=== PATIENT | male | born 1940 | race Caucasian/White ===

== ENCOUNTER 2017-04-25 14:01 | Emergency (ER) | payer OTHER, MEDICARE ==
[2017-04-25 14:08] VITALS: BP 131/99; PULSE 70; RESP 16; TEMP 97.7; O2SAT 96
[2017-04-25 14:40] LABS: COLOR YELLOW; LEUKOCYTE ESTERASE,URINE NEGATIVE (NEGATIVE); NITRITE,URINE NEGATIVE (NEGATIVE)
[2017-04-25 14:53] LABS: MUCUS TRACE /lpf (NONE-1+)
== END 2017-04-25 15:30 | disposition left against medical advice (07) ==
DX: Z53.21 Procedure and treatment not carried out due to patient leaving prior to being seen by health care provider (principal)

== ENCOUNTER 2018-02-07 16:46 | Emergency (ER) | payer OTHER, MEDICARE ==
[2018-02-07] MEDS ORDERED: TDAP ADULT 0.5 ML INJ (BOOSTRIX) IM ONE (17:10)
--- NOTE | 2018-02-07 17:48 | EDPHY ---
H & P Stated Complaint: L 2ND FINGER LAC/BLEEDING SINCE CUTTING ON APPLE - Personal History Current Tetanus Diphtheria and Acellular Pertussis (TDAP): Unsure - Medical/Surgical History Hx Asthma: No Hx Chronic Respiratory Disease: No Hx Diabetes: No Hx Cardiac Disease: No Hx Renal Disease: No Hx Cirrhosis: No Hx Alcoholism: No Hx HIV/AIDS: No Hx Splenectomy or Spleen Trauma: No Other PMH: Undecended testical repair, R inguinal hernia repair, R meniscus, HTN. - Social History Smoking Status: Former smoker Time Seen by Provider: 02/07/18 17:10 HPI/ROS: Chief complaint: Left 2nd finger laceration History of present illness: This is a 77-year-old male who presents to the emergency department for evaluation of a left 2nd finger laceration. Patient was cutting an apple this morning, when the knife slipped, cutting the base of his finger. Minimal pain. Bleeding was initially controlled with a dressing. No report of coolness or paresthesias in the finger. However, while trying to use his hand throughout the day the wound kept opening up and bleeding therefore he presents here. He is unsure of his last tetanus shot. No other injuries reported. ([place]) - Physical Exam Exam: General: Alert, nontoxic Skin: 1 cm flap to the base of the flexor surface of the left 2nd finger. Exploration does not reveal foreign body contamination or deep structure injury. Musculoskeletal: Patient extending the left 2nd finger in the DIPJ, PIP and MCP joint well. He is flexing in the DIPJ, PIP and MCP joint well with good strength. Vascular: Capillary refill brisk in the left 2nd finger. Neurologic: Sensation intact using light touch and two-point discrimination. ( [place]) Constitutional: Initial Vital Signs Temperature (C) 36.7 C 02/07/18 16:56 Heart Rate 82 02/07/18 16:56 Respiratory Rate 16 02/07/18 16:56 Blood Pressure 116/78 02/07/18 16:56 O2 Sat (%) 95 02/07/18 16:56 O2 Delivery Mode Room Air Allergies/Adverse Reactions: shellfish derived Allergy (Severe, Verified 04/25/17 14:08) Loss of consciousness Home Medications: Medication Instructions Recorded Lisinopril 03/13/13 Medical Decision Making Procedures: Procedure: Laceration repair. Verbal consent was obtained from the patient. The 1 cm laceration on the left 2nd finger was anesthetized in the usual fashion. The wound was irrigated, draped and explored to its base with a gloved finger. There were no deep structures involved. No tendon injury was identified. The wound was repaired with 5 0 Prolene, 3 simple interrupted sutures to loosely approximate the wound. The wound repair was simple. The procedure was performed by myself. ( [place]) ED Course/Re-evaluation: Patient seen under the supervision of my secondary supervising physician Dr. Rajni Poole. Patient presents to the emergency department for a laceration to his left 2nd finger. His finger is neurovascularly intact. It has been almost 10 hr since the initial injury. He is on the line of needing to allow this to close by secondary intention. I did discuss this with the patient. As this is more of a skin flap we have elected to copiously irrigated and loosely approximated. This has occurred. His tetanus is updated. Home care is discussed. He is referred to Hand surgery for recheck. Return precautions are given. ([place] N[place]) Differential Diagnosis: Included but not limited to laceration, foreign body contamination, deep structure injury ([place] N[place]) Other Provider: The patient was evaluated and managed by the Physician Field Technical Support Consultant. My co- signature indicates that I have reviewed this chart and I agree with the findings and plan of care as documented. I am the secondary supervising physician. (Rajni Poole) - Data Points Medications Given: Discontinued Medications Diphtheria/Tetanus/Acell Pertussis (Boostrix) 0.5 ml IM .ONCE ONE Stop: 02/07/18 17:11 Last Admin: 02/07/18 17:45 Dose: 0.5 ml Departure - Departure Disposition: Home, Routine, Self-Care Clinical Impression: Finger laceration Condition: Good Instructions: Care For Your Stitches (ED), Laceration (ED), Acute Wounds (ED) Additional Instructions: Follow-up with a hand doctor on Saturday or Saturday for recheck Stitches to be removed in 7 days If symptoms worsen or new symptoms develop return to the emergency room for recheck Referrals: Sultana Shah PA [Primary Care Provider] - As per Instructions Meli Schwarz MD [Medical Doctor] - As per Instructions
[2018-02-07 18:19] VITALS: BP 126/79
== END 2018-02-07 18:19 | disposition home or self-care (01) ==
PROC: 0HQGXZZ Repair Left Hand Skin, External Approach (ICD-10-PCS; principal; 2018-02-07)
DX: S61.211A Laceration without foreign body of left index finger without damage to nail, initial encounter (principal); I10 Essential (primary) hypertension; Z23 Encounter for immunization; Z87.891 Personal history of nicotine dependence; W26.0XXA Contact with knife, initial encounter; Y99.8 Other external cause status; Y93.89 Activity, other specified

== ENCOUNTER → 2018-03-28 | Outpatient (CLI) | payer OTHER, MEDICARE | LOC: FIMAGING 14:28 | PROVIDERS: ATTEND Specialist | DX: N20.0 Calculus of kidney (principal) ==

== ENCOUNTER → 2018-07-01 | Outpatient (CLI) | payer OTHER, MEDICARE | LOC: FIMAGING 08:47 | PROVIDERS: ATTEND Specialist | DX: Z03.89 Encounter for observation for other suspected diseases and conditions ruled out (principal) ==

== ENCOUNTER → 2019-01-10 | Outpatient (CLI) | payer OTHER, MEDICARE | LOC: FIMAGING 10:51 → EDSTATUS 10:52 | PROVIDERS: ATTEND Specialist | DX: R93.422 Abnormal radiologic findings on diagnostic imaging of left kidney (principal); I87.8 Other specified disorders of veins; M47.816 Spondylosis without myelopathy or radiculopathy, lumbar region; M41.85 Other forms of scoliosis, thoracolumbar region ==